=== PATIENT | male | born 1950 | race American Indian/Alaskan Native ===

== ENCOUNTER 2021-09-30 09:43 | Day surgery (SDC) | payer MEDICARE ==
[2021-09-30 10:52] LABS: Basophils % (Auto) 0.5 % (0.0-1.8); Eosinophils % (Auto) 0.6 % (0.0-4.3); Hematocrit 39.8 % (35.5-45.6); Hemoglobin 13.7 gm/dl (11.8-15.2); Mean Corpuscular HGB Conc 34 % (32-34); Mean Corpuscular Volume 93 fl (84-94); Monocytes # (Auto) 0.7 K/mm3 (0.0-0.8); Monocytes % (Auto) 15.7 % (0.0-7.3); Platelet Count 225 K/mm3 (140-440); Red Cell Distribution Width 15.2 % (13.2-15.2)
[2021-09-30 11:06] LABS: INR 0.98 (0.87-1.13)
[2021-09-30 11:07] LABS: Partial Thromboplastin Time 31.6 Sec. (24.2-36.6)
[2021-09-30 11:12] LABS: BUN/Creatinine Ratio 16; Blood Urea Nitrogen 18 mg/dL (9-20); Calcium 10.1 mg/dL (8.4-10.2); Hemolysis Index 9
[2021-09-30] MEDS: SODIUM CHLORIDE 0.9% 500 ML 500 ML IV SCH ×2 (11:53→12:24)
[2021-09-30] MEDS ORDERED: HEPARIN/NS 5000 UNIT/500ML 1,500 ML IR ONE (12:09)
[2021-09-30] MEDS ORDERED: LIDOCAINE (2%) 20 MG/1 ML VIAL 50 ML MDV INFILTRATI ONE (12:09)
[2021-09-30] MEDS: MIDAZOLAM 2 MG/2 ML INJ ONE ×7 (12:38→14:38)
[2021-09-30] MEDS: fentaNYL 100 MCG/2 ML INJ ONE ×5 (12:38→14:03)
[2021-09-30] MEDS ORDERED: SODIUM CHLORIDE 0.9% 1000 ML 0 ML ONE (12:41)
[2021-09-30] MEDS: HEPARIN 10,000 UNITS/10 ML VIAL ONE ×3 (12:52→14:15)
[2021-09-30] MEDS ORDERED: LIDOCAINE (1%) 10 MG/1 ML VIAL 20 ML MDV ONE (13:22)
[2021-09-30] MEDS ORDERED: VERAPAMIL 5 MG/2 ML INJ ONE (13:22)
[2021-09-30] MEDS ORDERED: NITROGLYCERIN SYRINGE 3 ML ONE (13:22)
[2021-09-30] MEDS ORDERED: SODIUM CHLORIDE 0.9% 500 ML 500 ML ONE (14:16)
--- NOTE | 2021-09-30 15:17 | Short Stay Summary ---
Short Stay Documentation Date of service: 09/30/21 Narrative H&P: See H&P - History H&P: obtained from office - Allergies and Medications Current Medications: Allergies aspirin Allergy (Verified 09/30/21 10:16) Vomiting ibuprofen Allergy (Verified 09/30/21 10:16) Vomiting Home Medications Medication Instructions Recorded Confirmed Last Taken Type AtorvaSTATin [Lipitor] 10 mg PO QHS 09/30/21 09/30/21 09/28/21 History Sitagliptin Phosphate [Januvia] 50 mg PO PRN PRN 09/30/21 09/30/21 09/28/21 History Tamsulosin [Flomax] 0.4 mg PO QDAY 09/30/21 09/30/21 09/28/21 History Zolpidem Tartrate 10 mg PO QHS 09/30/21 09/30/21 09/28/21 History oxyCODONE /ACETAMINOPHEN [Percocet 1 tab PO Q6HR PRN 09/30/21 09/30/21 09/28/21 History 5/325] Active Medications Sodium Chloride (Nacl 0.9% 500 Ml) 500 mls @ 50 mls/hr IV DIRECT ES Last Admin: 09/30/21 12:24 Dose: 50 mls/hr - Brief post op/procedure progress note Date of procedure: 09/30/21 Pre-op diagnosis: Right Lower Extremity Critical Limb Ischemia Post-op diagnosis: same Procedure: 1. Ultrasound-Guided Access Left Common Femoral Artery 2. Ultrasound-Guided Access Right Posterior Tibial Artery 3. Diagnostic Aortogram (No Previous Films for Comparison) 4. Diagnostic Right Lower Extremity Angiogram (No Previous Films for Comparison) 5. Angioplasty and Stent of Right External Iliac Artery with 8 x 40 Conquest Balloon and 8 x 5 cm Viabahn Stent Graft 6. Angioplasty and Stent of Right SFA and Popliteal Artery with 6.0 x 200 (x2) [place] Drug-Coated Balloon in the SFA, 5.0 x 200 (x2) [place] Drug-Coated Balloon and 6.0 x 120 [place] Drug-Eluting Stent in the Popliteal Artery 7. Angioplasty of Right Posterior Tibial Artery with 3.0 x 220 Rafy Balloon 8. Closure of Left Femoral Arteriotomy with Perclose ProGlide Closure Device 9. Radiologic Supervision with Interpretation 10. Monitored Moderate Sedation (Total Anesthesia Time: 147 Minutes) Anesthesia: local, other (Monitored Moderate Sedation) Surgeon: KEVIN BORJA Estimated blood loss: minimal Pathology: none Condition: stable - Disposition Condition at discharge: Good Disposition: 01 HOME / SELF CARE / HOMELESS Short Stay Discharge Plan Activity: other (No strenuous activity for 24 hours.) Wound: remove dressing (Remove left groin and right foot dressings in 48 hours. After removing the dressings it is okay to shower and wash the wounds with soap and water but do not soak the wounds for 2 weeks.) Follow up with: KEVIN BORJA MD [Staff Physician] - 14 Days Prescriptions: Clopidogrel [Plavix] 75 mg PO QDAY #90 tablet cilostazoL [Pletal] 100 mg PO BID #90 tablet Pantoprazole [Protonix] 40 mg PO QDAY #90 tablet Rivaroxaban [Xarelto] 2.5 mg PO BID #60 tab
--- NOTE | 2021-09-30 15:30 | Operative Report ---
Operative Report Operative Report: Date of Procedure: 09/30/2021 Pre-operative Diagnosis: Right Lower Extremity Critical Limb Ischemia Post-operative Diagnosis: Same Procedure(s): 1. Ultrasound-Guided Access Left Common Femoral Artery 2. Ultrasound-Guided Access Right Posterior Tibial Artery 3. Diagnostic Aortogram (No Previous Films for Comparison) 4. Diagnostic Right Lower Extremity Angiogram (No Previous Films for Comparison) 5. Angioplasty and Stent of Right External Iliac Artery with 8 x 40 Conquest Balloon and 8 x 5 cm Viabahn Stent Graft 6. Angioplasty and Stent of Right SFA and Popliteal Artery with 6.0 x 200 (x2) [place] Drug-Coated Balloon in the SFA, 5.0 x 200 (x2) [place] Drug-Coated Balloon and 6.0 x 120 [place] Drug-Eluting Stent in the Popliteal Artery 7. Angioplasty of Right Posterior Tibial Artery with 3.0 x 220 Rafy Balloon 8. Closure of Left Femoral Arteriotomy with Perclose ProGlide Closure Device 9. Radiologic Supervision with Interpretation 10. Monitored Moderate Sedation (Total Anesthesia Time: 147 Minutes) Surgeon: Bryan Aragon M.D. Pharmacist Apprentice: Nakita Anesthesia: Local/Monitored Moderate Sedation Total Anesthesia Time: 147 Minutes EBL: Minimal Counts: Correct Complications: None Condition: Stable Specimen: None Indication: The patient is a 71-year-old male with history of peripheral vascular disease who presented with rest pain and a recent brown recluse spider bite on the lateral aspect of his right calf. He states that the spider bite occurred approximately 3 weeks prior to his presentation. 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 He is in need of a right lower extremity angiogram with intervention to prevent right lower extremity amputation. He has been given the risk, benefits, and alternative procedures and has consented to the procedure. Angiographic Findings: The diagnostic aortogram revealed that the aorta was patent without evidence of aneurysmal dilatation or flow-limiting stenosis. The diagnostic right lower extremity angiogram revealed that the right common iliac artery was patent without evidence of aneurysmal dilatation or flow- limiting stenosis. There was approximately 30% stenosis in the proximal external iliac artery however this was not flow-limiting. There was a 99% stenosis in the mid external iliac artery the distal external iliac artery was patent without evidence of flow-limiting stenosis. The common femoral artery and profunda artery were patent without evidence of flow-limiting stenosis. There was a flush occlusion of the proximal SFA with reconstitution of flow in the popliteal artery at Bronson's canal a floating segment with reocclusion and then reconstitution of flow in a below-knee segment that was approximately 75% stenosed. The anterior tibial artery was occluded shortly after its origin. The peroneal artery patent without significant flow-limiting stenosis. Posterior tibial artery was patent without significant flow-limiting stenosis. After intervention the external iliac artery was patent with approximately 15% residual stenosis. The SFA was patent with approximately 20% stenosis at the origin however this was not flow limiting. There was approximately 15% residual stenosis in the remainder of the SFA. The popliteal artery was patent with approximately 15% residual stenosis. There was brisk flow of contrast into the peroneal and posterior tibial artery which briskly filled the foot. Description of Procedure: The patient was brought to the [facility]ensing Worker and laid in supine position. After a timeout was performed his left groin was prepped and draped in normal sterile fashion. Ultrasound was used to identify the left common femoral artery and confirm patency. Once patency was confirmed the overlying skin and soft tissue was anesthetized with lidocaine. An 11 blade was used to make a small stab incision and then a curved hemostat was used with ultrasound guidance to bluntly dissect down to the anterior surface of the left common femoral artery. A 21- gauge micropuncture needle was used with ultrasound guidance to access the left common femoral artery, in retrograde fashion, and a 0.018 micropuncture wire was advanced into the artery. The needle was removed and a micropuncture sheath was placed by Seldinger technique. The dilator and wire were removed and a 0.035 Bentson wire was advanced into the aorta. The micropuncture sheath was removed and a 5 Swazi sheath was placed by Seldinger technique. I advanced a Omni Flush catheter into the aorta and after removing the Bentson wire a diagnostic aortogram was performed with the previously described findings. I reinserted the Bentson wire and advanced the catheter and wire up and over the bifurcation and performed a diagnostic right lower extremity angiogram with the previously described findings. And advanced the Bentson wire into the external iliac artery and was able to cross the area of stenosis and advanced the wire into the profunda artery. I exchanged the 5 Swazi sheath for 7 Swazi 45 cm destination sheath by Seldinger technique. At this point I systemically heparinized the patient with 5000 units of heparin IV and this was redosed with 1000 units every 45 minutes into the completion of the case. I advanced the sheath across the area of stenosis in the external iliac artery and then advanced a V 18 wire into the external iliac artery. I then advanced an 8 x 5 cm Viabahn Stent Graft into the external iliac artery and positioned it across the area of stenosis and performed an angiogram to ensure that this was centered across the area of stenosis. I deployed the stent graft and then postdilated the stent graft with an 8 x 40 Conquest Balloon resulted in approximately 15% residual stenosis. I reinserted the dilator and the destination sheath and advanced the sheath into the common femoral artery and then made multiple attempts to cannulate the occluded SFA without success so I decided to gain pedal access. I used ultrasound to identify the posterior tibial artery, at the level of the medial malleolus, and confirm patency. I anesthetized the skin and soft tissue overlying the artery and then used a 21-gauge micropuncture needle with ultrasound guidance to access the posterior tibial artery in retrograde fashion. I advanced a 0.018 micropuncture wire into the artery and after remove the needle placed a micropuncture sheath by Seldinger technique. I removed the dilator and wire and then advanced a short 0.035 sheath wire into the artery and placed a 4 Swazi sheath into the artery. At this point I injected a radial cocktail consisting of heparin, verapamil, nitroglycerin into the artery. I then used a Navicross catheter and a combination of wires to cross the occluded popliteal artery and SFA and reenter the common femoral artery which was confirmed by angiogram. I eventually advanced the V 18 wire into the common femoral artery and used a 6 - 10 mm EN Snare from the left femoral access site to snare the V 18 wire. I pulled this wire out through the left femoral access site and then remove the Navicross catheter. I advanced a 0.035 trailblazer over the V 18 wire in antegrade fashion into the distal posterior tibial artery and then remove the V 18 wire. I then advanced the V 18 wire in antegrade fashion into the distal posterior tibial artery. I removed the trailblazer and then advanced a 5 x 200 [place] Drug-Coated Balloon into the popliteal artery and performed angioplasty. This was followed by another 5 x 200 [place] Drug-Coated Balloon. I then performed angioplasty of the SFA using two 6 x 200 [place] Drug- Coated Balloons and a 6 x 120 [place] Drug-Coated Balloon. This resulted in approximately 25% residual stenosis at the origin of the SFA however this was not flow-limiting. There was approximately 15% residual stenosis within the remainder of the SFA that was not flow-limiting. The proximal and mid popliteal artery had approximately 15% residual stenosis that was nonflow limiting. There was a dissection in the below-knee popliteal artery that was flow-limiting so I placed a 6.0 x 120 [place] Drug-Eluting Stent which successfully tacked the dissection up resulted in less than 15% residual stenosis. I then advanced a 3.0 x 220 balloon into the posterior tibial artery and removed a 4 Swazi sheath. I inflated this for approximately 5 minutes which resulted in adequate hemostasis and brisk flow of contrast into the posterior tibial artery and foot. At this point I remove the V 18 wire and pulled the sheath back into the left external iliac artery. I advanced a Bentson wire into the aorta and then remove the 7 Swazi sheath. I used a Perclose Pro-[place] Closure Device to close the left femoral arteriotomy. Sterile dressings were then applied to the entry site and the foot as well as the left groin. The patient tolerated the procedure well was transported to the recovery area in stable condition.
[2021-09-30] MEDS ORDERED: CLOPIDOGREL 300 MG TAB PO ONE (15:31)
[2021-09-30] MEDS ORDERED: oxyCODONE /ACETAMINOPHEN 5-325MG TAB PO PRN (15:43)
[2021-09-30] MEDS ORDERED: RIVAROXABAN 2.5 MG TAB PO ONE (16:00)
[2021-09-30 16:35] VITALS: BP 124/70
== END 2021-09-30 17:15 | disposition home or self-care (01) ==
LOC: CATHLABREC 09:43
PROVIDERS: ATTEND Surgery Vascular Surgery
DX: I70.232 Atherosclerosis of native arteries of right leg with ulceration of calf (principal); I10 Essential (primary) hypertension; F17.210 Nicotine dependence, cigarettes, uncomplicated; Z88.6 Allergy status to analgesic agent; Z88.8 Allergy status to other drugs, medicaments and biological substances; Z79.899 Other long term (current) drug therapy; Z98.49 Cataract extraction status, unspecified eye; Z87.442 Personal history of urinary calculi; Z98.890 Other specified postprocedural states
CPT/HCPCS: 36415; 37221; 37226; 37228; 75625; 75710; 76937; 80048; 85025; 85610; 85730; 99156; 99157; C1725; C1751; C1760; C1769; C1773; C1874; C1887; C1894; C2623; J1644; J1815; J2250; J3010; J3490; J7040; J7030; Q9967